=== PATIENT | male | born 1965 | race Two or more races ===

== ENCOUNTER 2021-08-01 21:45 | Emergency (ER) | payer MEDICAID ==
[~2021-08-01] VITALS: Ht 177.8 cm; Wt 72.6 kg
[2021-08-01 21:47] VITALS: BP 133/76
== END 2021-08-02 00:36 | disposition left against medical advice (07) ==
LOC: EDBD 21:45 → ER 21:45
DX: M25.511 Pain in right shoulder (principal); Z53.21 Procedure and treatment not carried out due to patient leaving prior to being seen by health care provider
CPT/HCPCS: 73030